=== PATIENT | male | born 1965 | race Two or more races ===

== ENCOUNTER 2023-09-17 23:05 | Inpatient (IN) | payer MEDICAID, OTHER ==
[~2023-09-17] VITALS: Ht 165.1 cm; Wt 68.3 kg
[2023-09-18] VITALS (11 sets, daily range): BP systolic 99–158; BP diastolic 66–107; PULSE 62–113; RESP 16–28; TEMP 98.4–99.4; O2SAT 93–99
[2023-09-18 00:08] LABS: Basophils # (auto) 0.1 10 ^3/uL (0-0.2); Basophils % (auto) 0.4 % (0.0-2.0); Eosinophils # (auto) 0 10 ^3/uL (0-0.8); Eosinophils % (auto) 0.1 % (0.0-7.0); Hematocrit 42.8 % (41.0-53.0); Hemoglobin 13.9 g/dL (13.5-17.5); Lymphocytes # (auto) 1.6 10 ^3/uL (0.4-5.4); Lymphocytes % (auto) 8.3 % (10.0-50.0); Mean Corpuscular Hemoglobin 30.1 pg (28.0-32.0); Mean Corpuscular Hgb Conc. 32.5 g/dL (32.0-36.0); Mean Corpuscular Volume 92.6 fL (80.0-100.0); Monocytes # (auto) 1.9 10 ^3/uL (0-1.3); Neutrophils # (auto) 15.3 10 ^3/uL (1.6-8.6); Neutrophils % (auto) 81.2 % (37.0-80.0); Red Blood Cells 4.62 10^6/uL (4.5-5.90); Red Cell Distribution Width 13.3 % (11.8-14.3); White Blood Cell 18.8 10^3/uL (4.4-10.8)
[2023-09-18 00:25] LABS: Alanine Aminotransferase 14 U/L (7-40); Alkaline Phosphatase 127 U/L (46-116); Anion Gap 8 (5-15); Calcium 9.4 mg/dL (8.7-10.4); Carbon Dioxide 26 mmol/L (20-30); Chloride 98 mmol/L (98-107); Potassium 4.8 mmol/L (3.5-5.1); Sodium 132 mmol/L (136-145)
[2023-09-18 00:26] LABS: Albumin 4.2 g/dL (3.2-4.8); Aspartate Aminotransferase < 8 U/L (13-40); Bilirubin, Total 0.9 mg/dL (0.2-1.0); Total Protein 7.7 g/dL (5.7-8.2)
[2023-09-18 00:35] LABS: BUN/Creatinine Ratio 5.9 (10.0-20.0); Blood Urea Nitrogen < 5 mg/dL (9-23)
[2023-09-18 00:37] LABS: Glucose 417 mg/dL (74-106)
[2023-09-18] MEDS: cefTRIAXone 1GM/50ML D5W 50 ML IV ONE (03:21)
[2023-09-18] MEDS: ENOXAPARIN SOD 100 MG/1 ML SYRINGE SC ONE (03:21)
[2023-09-18] MEDS: ASPirin 81 mg TAB PO ONE (03:21)
[2023-09-18] MEDS: InsuLIN REG 1unit/0.01ml Soln (100units/ml) IV ONE (03:22)
[2023-09-18] MEDS ORDERED: ONDANSETRON HCL 4 MG/2 ML VIAL IV PRN (03:45)
[2023-09-18] MEDS ORDERED: NITROGLYCERIN 0.4 MG SL TAB SL PRN (03:45)
[2023-09-18] MEDS: AZITHROMYCIN 500MG/ 250ML 250 ML IV ONE (04:29)
[2023-09-18 04:56] LABS: Triglycerides 109 mg/dL (< 150)
[2023-09-18 04:57] LABS: LDL Cholesterol 61 mg/dL (< 100)
[2023-09-18 04:58] LABS: Cholesterol 135 mg/dL (< 200); HDL Cholesterol 52 mg/dL (40-59)
[2023-09-18 05:00] LABS: Lactic Acid w/Reflex 2.5 mmol/L (0.4-2.0)
[2023-09-18] MEDS ORDERED: DEXTROSE (50%) 50ML SYRG IV PRN (06:30)
[2023-09-18] MEDS: SODIUM CHLORIDE 0.9% 1,000 ML IV ONE (06:52)
[2023-09-18] MEDS: ACCU-CHEK COMFORT CURVE STRIP VI SCH (06:52)
[2023-09-18] MEDS: InsuLIN REG 1unit/0.01ml Soln (100units/ml) SC SCH (07:00)
[2023-09-18] MEDS: ASPirin 81 mg TAB PO SCH (09:53)
[2023-09-18] MEDS ORDERED: SODIUM CHLORIDE 0.9% 1,000 ML IV SCH (10:00)
[2023-09-18] MEDS ORDERED: DOCUSATE SOD 100 MG CAP PO PRN (11:00)
[2023-09-18] MEDS ORDERED: ACETAMINOPHEN 500 MG TAB PO PRN (11:00)
[2023-09-18] MEDS ORDERED: GABA-1250 PO (11:06)
[2023-09-18] MEDS: IPRATROPIUM BROM 0.5 MG/2.5ML INH SOL NEB PRN (18:51)
[2023-09-18] MEDS: ALBUTEROL SULF 2.5 MG/0.5ML(0.5%) NEB SOLN NEB PRN (18:51)
[2023-09-18] MEDS: HYDROcodone-ACET 5/325MG TAB PO PRN (20:53)
[2023-09-18] MEDS: ATORVASTATIN 20 MG TAB PO SCH (20:53)
[2023-09-19] VITALS (9 sets, daily range): BP systolic 122–133; BP diastolic 78–85; PULSE 84–112; RESP 16–20; TEMP 98.1–99.7; O2SAT 90–97
[2023-09-19] MEDS ORDERED: cefTRIAXone 1GM/50ML D5W 50 ML IV SCH (03:00)
[2023-09-19] MEDS ORDERED: AZITHROMYCIN 500MG/ 250ML 250 ML IV SCH (04:00)
[2023-09-19 07:24] LABS: Basophils # (auto) 0.1 10 ^3/uL (0-0.2); Basophils % (auto) 0.3 % (0.0-2.0); Eosinophils # (auto) 0.2 10 ^3/uL (0-0.8); Eosinophils % (auto) 1.1 % (0.0-7.0); Hematocrit 37.5 % (41.0-53.0); Hemoglobin 12.3 g/dL (13.5-17.5); Lymphocytes # (auto) 1.6 10 ^3/uL (0.4-5.4); Lymphocytes % (auto) 10.1 % (10.0-50.0); Mean Corpuscular Hemoglobin 30.2 pg (28.0-32.0); Mean Corpuscular Hgb Conc. 32.9 g/dL (32.0-36.0); Mean Corpuscular Volume 91.7 fL (80.0-100.0); Monocytes % (auto) 12.6 % (0.0-12.0); Neutrophils % (auto) 75.9 % (37.0-80.0); Nucleated Red Blood Cells % 0.1 %; Red Blood Cells 4.09 10^6/uL (4.5-5.90); Red Cell Distribution Width 12.8 % (11.8-14.3); White Blood Cell 15.8 10^3/uL (4.4-10.8)
[2023-09-19 07:30] LABS: Alanine Aminotransferase < 9 U/L (7-40); Albumin 3.5 g/dL (3.2-4.8); Alkaline Phosphatase 92 U/L (46-116); Anion Gap 10 (5-15); Aspartate Aminotransferase 14 U/L (13-40); BUN/Creatinine Ratio 14.3 (10.0-20.0); Bilirubin, Total 0.5 mg/dL (0.2-1.0); Blood Urea Nitrogen 9 mg/dL (9-23); Calcium 8.8 mg/dL (8.5-10.1); Carbon Dioxide 23 mmol/L (20-30); Chloride 99 mmol/L (98-107); Glucose 210 mg/dL (74-106); Potassium 3.9 mmol/L (3.5-5.1); Sodium 132 mmol/L (136-145); Total Protein 6.7 g/dL (5.7-8.2)
[2023-09-19] MEDS: cefTRIAXone 1GM/50ML D5W 50 ML IV SCH (08:43)
[2023-09-19 09:16] LABS: Base Excess -2.1 mmol/L (-2.0-2.0)
[2023-09-19] MEDS: AZITHROMYCIN 500MG/ 250ML 250 ML IV SCH (09:38)
[2023-09-19] MEDS: ENOXAPARIN SOD 40 MG/0.4 ML SYRINGE SC SCH (09:38)
[2023-09-19] MEDS ORDERED: DEXTROSE (50%) 50ML SYRG IV PRN (12:00)
[2023-09-19] MEDS: InsuLIN REG 1unit/0.01ml Soln (100units/ml) SC ONE (12:50)
[2023-09-19] MEDS: ACCU-CHEK COMFORT CURVE STRIP VI SCH (17:56)
[2023-09-19] MEDS: InsuLIN REG 1unit/0.01ml Soln (100units/ml) SC SCH ×2 (17:58→22:13)
[2023-09-19] MEDS: metFORMIN HYDROCHLORIDE 850 MG TAB PO SCH (17:59)
[2023-09-20] VITALS (8 sets, daily range): BP systolic 125–154; BP diastolic 81–99; PULSE 85–109; RESP 16–19; TEMP 98.2–99.5; O2SAT 92–96
[2023-09-20 05:22] LABS: Basophils # (auto) 0.1 10 ^3/uL (0-0.2); Basophils % (auto) 0.4 % (0.0-2.0); Eosinophils # (auto) 0.2 10 ^3/uL (0-0.8); Eosinophils % (auto) 1.7 % (0.0-7.0); Hematocrit 37.5 % (41.0-53.0); Hemoglobin 12.4 g/dL (13.5-17.5); Lymphocytes # (auto) 1.8 10 ^3/uL (0.4-5.4); Lymphocytes % (auto) 12.9 % (10.0-50.0); Mean Corpuscular Hemoglobin 30.2 pg (28.0-32.0); Mean Corpuscular Hgb Conc. 33.1 g/dL (32.0-36.0); Monocytes # (auto) 1.7 10 ^3/uL (0-1.3); Monocytes % (auto) 12.2 % (0.0-12.0); Neutrophils # (auto) 9.9 10 ^3/uL (1.6-8.6); Neutrophils % (auto) 72.8 % (37.0-80.0); Nucleated Red Blood Cells % 0.1 %; Red Blood Cells 4.12 10^6/uL (4.5-5.90); Red Cell Distribution Width 12.8 % (11.8-14.3); White Blood Cell 13.6 10^3/uL (4.4-10.8)
[2023-09-20 05:33] LABS: Calcium 8.5 mg/dL (8.7-10.4); Chloride 98 mmol/L (98-107); Potassium 3.7 mmol/L (3.5-5.1); Sodium 132 mmol/L (136-145)
[2023-09-20 05:34] LABS: Anion Gap 9 (5-15); Carbon Dioxide 25 mmol/L (20-30)
[2023-09-20 05:39] LABS: BUN/Creatinine Ratio 16.4 (10.0-20.0); Blood Urea Nitrogen 11 mg/dL (9-23); Glucose 216 mg/dL (74-106)
[2023-09-20] MEDS ORDERED: IOHEXOL 350 MG/ML 100ML IJ ONE (16:21)
[2023-09-20] MEDS: SODIUM CHLORIDE 0.9% 500 ML IV ONE (17:46)
[2023-09-20 20:21] LABS: Chloride 100 mmol/L (98-107); Sodium 133 mmol/L (136-145)
[2023-09-20 20:22] LABS: Anion Gap 6 (5-15); Calcium 8.5 mg/dL (8.7-10.4); Carbon Dioxide 27 mmol/L (20-30)
[2023-09-20 20:27] LABS: BUN/Creatinine Ratio 15.6 (10.0-20.0); Blood Urea Nitrogen 12 mg/dL (9-23); Glucose 223 mg/dL (74-106)
[2023-09-21] VITALS (9 sets, daily range): BP systolic 125–175; BP diastolic 81–98; PULSE 88–110; RESP 16–20; TEMP 98.2–99.7; O2SAT 90–96
[2023-09-21 05:58] LABS: Basophils # (auto) 0.1 10 ^3/uL (0-0.2); Basophils % (auto) 0.4 % (0.0-2.0); Eosinophils # (auto) 0.2 10 ^3/uL (0-0.8); Eosinophils % (auto) 1.5 % (0.0-7.0); Hematocrit 36.7 % (41.0-53.0); Hemoglobin 12.1 g/dL (13.5-17.5); Lymphocytes # (auto) 1.6 10 ^3/uL (0.4-5.4); Mean Corpuscular Hemoglobin 29.8 pg (28.0-32.0); Mean Corpuscular Hgb Conc. 32.9 g/dL (32.0-36.0); Mean Corpuscular Volume 90.5 fL (80.0-100.0); Monocytes # (auto) 1.7 10 ^3/uL (0-1.3); Monocytes % (auto) 13.3 % (0.0-12.0); Neutrophils # (auto) 9.5 10 ^3/uL (1.6-8.6); Neutrophils % (auto) 72.8 % (37.0-80.0); Red Blood Cells 4.06 10^6/uL (4.5-5.90)
[2023-09-21 06:04] LABS: Alanine Aminotransferase 32 U/L (7-40); Alkaline Phosphatase 107 U/L (46-116); Anion Gap 9 (5-15); BUN/Creatinine Ratio 18.8 (10.0-20.0); Blood Urea Nitrogen 12 mg/dL (9-23); Calcium 8.1 mg/dL (8.7-10.4); Carbon Dioxide 25 mmol/L (20-30); Chloride 100 mmol/L (98-107); Glucose 224 mg/dL (74-106); Potassium 4.3 mmol/L (3.5-5.1); Sodium 134 mmol/L (136-145)
[2023-09-21 06:05] LABS: Albumin 3.1 g/dL (3.2-4.8); Aspartate Aminotransferase 38 U/L (13-40); Bilirubin, Total 0.4 mg/dL (0.2-1.0); Total Protein 5.8 g/dL (5.7-8.2)
[2023-09-21] MEDS: CLINDAMYCIN 600MG IV 50 ML IV SCH (21:43)
[2023-09-22] VITALS (8 sets, daily range): BP systolic 127–174; BP diastolic 87–108; PULSE 79–104; RESP 17–19; TEMP 97.7–99.8; O2SAT 90–98
[2023-09-22 07:00] LABS: Basophils # (auto) 0.1 10 ^3/uL (0-0.2); Basophils % (auto) 0.6 % (0.0-2.0); Eosinophils # (auto) 0.3 10 ^3/uL (0-0.8); Hematocrit 35.6 % (41.0-53.0); Hemoglobin 12.1 g/dL (13.5-17.5); Lymphocytes # (auto) 1.5 10 ^3/uL (0.4-5.4); Mean Corpuscular Hemoglobin 30.6 pg (28.0-32.0); Mean Corpuscular Hgb Conc. 33.9 g/dL (32.0-36.0); Mean Corpuscular Volume 90.4 fL (80.0-100.0); Monocytes # (auto) 1.5 10 ^3/uL (0-1.3); Monocytes % (auto) 13.4 % (0.0-12.0); Neutrophils # (auto) 7.8 10 ^3/uL (1.6-8.6); Red Blood Cells 3.94 10^6/uL (4.5-5.90); Red Cell Distribution Width 12.9 % (11.8-14.3); White Blood Cell 11.2 10^3/uL (4.4-10.8)
[2023-09-22 07:29] LABS: Alanine Aminotransferase 63 U/L (7-40); Alkaline Phosphatase 218 U/L (46-116); Anion Gap 7 (5-15); BUN/Creatinine Ratio 11.7 (10.0-20.0); Blood Urea Nitrogen 7 mg/dL (9-23); Calcium 8.8 mg/dL (8.5-10.1); Carbon Dioxide 27 mmol/L (20-30); Chloride 98 mmol/L (98-107); Glucose 185 mg/dL (74-106); Potassium 4.3 mmol/L (3.5-5.1); Sodium 132 mmol/L (136-145)
[2023-09-22 07:30] LABS: Albumin 3.4 g/dL (3.2-4.8); Aspartate Aminotransferase 112 U/L (13-40); Bilirubin, Total 0.4 mg/dL (0.2-1.0); Total Protein 6.8 g/dL (5.7-8.2)
[2023-09-22 08:09] LABS: INR 1.09 (0.9-1.15); Partial Thromboplastin Time 35.6 SEC (24.5-34.5); Prothrombin Time 11.4 sec (9.3-11.8)
[2023-09-22 10:49] LABS: Erythrocyte Sedimentation Rate 92 mm/hr (0-20)
[2023-09-22] MEDS ORDERED: VANCOMYCIN PER PHARMACY 0 MG IV SCH (11:30)
[2023-09-22] MEDS: VANCOMYCIN 1GM/200ML 200 ML IV ONE (12:28)
[2023-09-22] MEDS: VANCOMYCIN 1GM/200ML 200 ML IV SCH (21:16)
[2023-09-22] MEDS: CEFEPIME 2GM/50ML NS 50 ML IV SCH (22:30)
[2023-09-23] VITALS (9 sets, daily range): BP systolic 113–158; BP diastolic 76–95; PULSE 79–127; RESP 16–19; TEMP 97.6–99.1; O2SAT 94–97
[2023-09-23 06:03] LABS: Basophils # (auto) 0.1 10 ^3/uL (0-0.2); Basophils % (auto) 0.4 % (0.0-2.0); Eosinophils # (auto) 0.2 10 ^3/uL (0-0.8); Eosinophils % (auto) 1.6 % (0.0-7.0); Hematocrit 36.9 % (41.0-53.0); Hemoglobin 12.2 g/dL (13.5-17.5); Lymphocytes # (auto) 1.4 10 ^3/uL (0.4-5.4); Lymphocytes % (auto) 10.6 % (10.0-50.0); Mean Corpuscular Hemoglobin 30.1 pg (28.0-32.0); Mean Corpuscular Hgb Conc. 33.1 g/dL (32.0-36.0); Mean Corpuscular Volume 90.8 fL (80.0-100.0); Monocytes # (auto) 1.7 10 ^3/uL (0-1.3); Monocytes % (auto) 12.8 % (0.0-12.0); Neutrophils % (auto) 74.6 % (37.0-80.0); Red Blood Cells 4.07 10^6/uL (4.5-5.90); White Blood Cell 13.4 10^3/uL (4.4-10.8)
[2023-09-23 06:17] LABS: Alanine Aminotransferase 42 U/L (7-40); Albumin 3.5 g/dL (3.2-4.8); Alkaline Phosphatase 187 U/L (46-116); Anion Gap 6 (5-15); Aspartate Aminotransferase 29 U/L (13-40); BUN/Creatinine Ratio 11.8 (10.0-20.0); Bilirubin, Total 0.4 mg/dL (0.2-1.0); Blood Urea Nitrogen 8 mg/dL (9-23); Calcium 8.9 mg/dL (8.5-10.1); Carbon Dioxide 25 mmol/L (20-30); Chloride 100 mmol/L (98-107); Glucose 275 mg/dL (74-106); Potassium 4.1 mmol/L (3.5-5.1); Sodium 131 mmol/L (136-145); Total Protein 7.3 g/dL (5.7-8.2)
[2023-09-23 13:08] LABS: Body Fluid pH 7
[2023-09-23 13:52] LABS: Body Fluid Polymorphonuclear 44 % (0-25); Body Fluid Red Blood Cells 5825 CUMM (0-2000); Body Fluid White Blood Cells 1550 CUMM (0-200)
[2023-09-23] MEDS: MORPHINE SULFATE INJ 2 MG/ml SYRG IV ONE (14:00)
[2023-09-23] MEDS: INSULIN LANTUS (GLARGINE) 1 /0.01ml (100units/ml) SC SCH (21:34)
[2023-09-24] VITALS (8 sets, daily range): BP systolic 110–123; BP diastolic 72–85; PULSE 68–110; RESP 16–18; TEMP 98.3–99.3; O2SAT 95–98
[2023-09-24] MEDS: InsuLIN REG 1unit/0.01ml Soln (100units/ml) SC SCH (00:42)
[2023-09-24] MEDS: ACCU-CHEK COMFORT CURVE STRIP VI SCH (00:43)
[2023-09-24 03:40] LABS: Basophils # (auto) 0 10 ^3/uL (0-0.2); Basophils % (auto) 0.1 % (0.0-2.0); Eosinophils # (auto) 0 10 ^3/uL (0-0.8); Hematocrit 33.2 % (41.0-53.0); Hemoglobin 10.9 g/dL (13.5-17.5); Lymphocytes # (auto) 1.5 10 ^3/uL (0.4-5.4); Mean Corpuscular Hemoglobin 29.6 pg (28.0-32.0); Mean Corpuscular Hgb Conc. 32.7 g/dL (32.0-36.0); Mean Corpuscular Volume 90.7 fL (80.0-100.0); Monocytes # (auto) 2.3 10 ^3/uL (0-1.3); Monocytes % (auto) 9.3 % (0.0-12.0); Neutrophils # (auto) 20.8 10 ^3/uL (1.6-8.6); Neutrophils % (auto) 84.6 % (37.0-80.0); Red Blood Cells 3.66 10^6/uL (4.5-5.90); Red Cell Distribution Width 13.3 % (11.8-14.3); White Blood Cell 24.6 10^3/uL (4.4-10.8)
[2023-09-24 04:02] LABS: Alanine Aminotransferase 46 U/L (7-40); Albumin 3.5 g/dL (3.2-4.8); Alkaline Phosphatase 227 U/L (46-116); Anion Gap 5 (5-15); Aspartate Aminotransferase 29 U/L (13-40); BUN/Creatinine Ratio 21.8 (10.0-20.0); Bilirubin, Total 0.5 mg/dL (0.2-1.0); Blood Urea Nitrogen 17 mg/dL (9-23); Calcium 8.7 mg/dL (8.7-10.4); Carbon Dioxide 25 mmol/L (20-30); Chloride 100 mmol/L (98-107); Glucose 298 mg/dL (74-106); Potassium 4.5 mmol/L (3.5-5.1); Sodium 130 mmol/L (136-145)
[2023-09-24 14:07] LABS: Albumin, Body Fluid 2.2 g/dL (Not Estab.); Protein, Body Fluid 4.7 g/dL (.)
[2023-09-24] MEDS ORDERED: DOXY-448 PO (14:43)
[2023-09-24] MEDS ORDERED: LEVO500T91 PO (14:43)
[2023-09-25] MEDS ORDERED: METF-371 PO (14:52)
== END 2023-09-24 17:58 | disposition home or self-care (01) | DRG 720 ==
LOC: ER 23:05 → TELE 09-18 03:34 → TELE-WESTW 09-18 03:38
PROVIDERS: ADMIT Nurse Practitioner; ATTEND Nurse Practitioner Acute Care
PROC: 0W9B3ZZ Drainage of Left Pleural Cavity, Percutaneous Approach (ICD-10-PCS; principal; 2023-09-23)
DX: A41.9 Sepsis, unspecified organism (principal); J96.01 Acute respiratory failure with hypoxia; I21.A1 Myocardial infarction type 2; J86.9 Pyothorax without fistula; I10 Essential (primary) hypertension; E11.40 Type 2 diabetes mellitus with diabetic neuropathy, unspecified; E11.65 Type 2 diabetes mellitus with hyperglycemia; J44.0 Chronic obstructive pulmonary disease with (acute) lower respiratory infection; Z79.84 Long term (current) use of oral hypoglycemic drugs; Z91.199 Patient's noncompliance with other medical treatment and regimen due to unspecified reason; Z79.4 Long term (current) use of insulin; Z87.891 Personal history of nicotine dependence; J15.69 Pneumonia due to other Gram-negative bacteria; J15.9 Unspecified bacterial pneumonia
CPT/HCPCS: 36415; 36600; 71045; 71275; 76604; 80048; 80053; 80061; 80202; 82805; 82962; 83036; 83605; 83615; 83880; 83986; 84484; 85025; 85379; 85610; 85652; 85730; 86850; 86900; 86901; 87040; 87205; 89051; 93005; 93306; 96372; 96374; 96375; G0378; J0692; J1815; J3490